=== PATIENT | female | born 1980 | race Caucasian/White ===

== ENCOUNTER 2016-03-09 20:32 | Emergency (ER) | payer OTHER ==
[~2016-03-09] VITALS: Ht 172.7 cm; Wt 84.8 kg
[2016-03-09] MEDS ORDERED: DOCUSATE SODIUM 283 MG/5 ML ENEMA. PR ONE (22:00)
--- NOTE | 2016-03-09 22:41 | PHYS DOC ---
Past Medical History Past Medical History: Constipation, Other Additional Past Medical Histor: pulmonary embolism Past Surgical History: No Surgical History Alcohol Use: None Drug Use: None Adult General Chief Complaint Chief Complaint: ABDOMINAL PAIN HPI HPI 35-year-old female who is 10-12 weeks presents with constipation. She states she's not had a bowel movement in a couple of days. She denies he fever chills or sweats. She's tried [id number] medicines at home but they have not worked. [] Review of Systems Review of Systems Constitutional: Denies fever or chills [] Eyes: Denies change in visual acuity, redness, or eye pain [] HENT: Denies nasal congestion or sore throat [] Respiratory: Denies cough or shortness of breath [] Cardiovascular: No additional information not addressed in HPI [] GI: Constipation [] : Denies dysuria or hematuria [] Musculoskeletal: Denies back pain or joint pain [] Integument: Denies rash or skin lesions [] Neurologic: Denies headache, focal weakness or sensory changes [] Endocrine: Denies polyuria or polydipsia [] Current Medications Current Medications Current Medications Medications (Trade) Dose Ordered Sig/Reva Start Time Stop Time Status Last Admin Dose Admin Docusate Sodium (Enemeez) 283 mg 1X ONCE 03/09/16 22:00 03/09/16 22:01 DC 03/09/16 22:26 283 MG Allergies Allergies Allergies Coded Allergies Type Severity Reaction Last Updated Verified No Known Drug Allergies 03/09/16 No Physical Exam Physical Exam Constitutional: Well developed, well nourished, no acute distress, non-toxic appearance. [] HENT: Normocephalic, atraumatic, bilateral external ears normal, oropharynx moist, no oral exudates, nose normal. [] Eyes: PERRLA, EOMI, conjunctiva normal, no discharge. [] Neck: Normal range of motion, no tenderness, supple, no stridor. [] Cardiovascular:Heart rate regular rhythm, no murmur [] Lungs & Thorax: Bilateral breath sounds clear to auscultation [] Abdomen: Bowel sounds normal, soft, no tenderness, no masses, no pulsatile masses. [] Skin: Warm, dry, no erythema, no rash. [] Back: No tenderness, no CVA tenderness. [] Extremities: No tenderness, no cyanosis, no clubbing, ROM intact, no edema. [] Neurologic: Alert and oriented X 3, normal motor function, normal sensory function, no focal deficits noted. [] Psychologic: Affect normal, judgement normal, mood normal. [] Current Patient Data Vital Signs Vital Signs Date Time Temp Pulse Resp B/P Pulse Ox O2 Delivery O2 Flow Rate FiO2 03/09/16 23:45 87 18 122/64 97 Room Air 03/09/16 20:55 97.6 97.6 EKG EKG [] Radiology/Procedures Radiology/Procedures [] Course & Med Decision Making Course & Med Decision Making Pertinent Labs and Imaging studies reviewed. (See chart for details) [ED course: Evaluation reveals a 35-year-old female with a benign abdominal exam and a complaint of constipation. She was given a fleets enema during her stay in the emergency department with good results.] Dragon Disclaimer Dragon Disclaimer This electronic medical record was generated, in whole or in part, using a voice recognition dictation system. Departure Departure Impression: Primary Impression: Constipation Disposition: 01 HOME, SELF-CARE Condition: IMPROVED Referrals: TRISTAN MOORE (PCP) Patient Instructions: Constipation, Adult Additional Instructions: OPERATIONS MGR doctor this week for recheck. Return to the emergency department with any new or concerning symptoms Problem Qualifiers Primary Impression: Constipation Constipation type: slow transit constipation Qualified Code: K59.01 - Slow transit constipation PARVEEN LYNN DO Mar 09, 2016 22:41
[2016-03-09 23:45] VITALS: BP 122/64
== END 2016-03-09 23:50 | disposition home or self-care (01) ==
LOC: ER 20:32
DX: O99.611 Diseases of the digestive system complicating pregnancy, first trimester (principal); K59.01 Slow transit constipation; Z3A.00 Weeks of gestation of pregnancy not specified; Z86.711 Personal history of pulmonary embolism
CPT/HCPCS: 99284